=== PATIENT | female | born 1950 | race Hispanic/Latino ===

== ENCOUNTER 2016-12-22 01:07 | Observation (INO) | payer OTHER, MEDICAID ==
[~2016-12-22] VITALS: Ht 152.4 cm; Wt 49.0 kg
[~2016-12-22 01:07] MED LIST: CHERATUSSIN AC473 ML PO; CLONAZEPAM1 MG PO; LO-DOSE ASPIRIN81 M2 PO; SIMVASTATIN40 MG PO; TESSALON PERLE100 MG PO; ZITHROMAX Z-PA250 MG PO
[2016-12-22 01:56] LABS: HEMATOCRIT 37.7 % (36.0-46.0); MCH 29.6 PG (29.0-34.0); MCHC 32.4 G/DL (30.0-36.0); MCV 91.5 FL (83-99); MEAN PLAT.VOLUME 9.7 uM^3 (9.5-12.4); PLATELET COUNT 289 K/uL (156-360); RBC DIS.WIDTH-SD 43.8 % (39-53); RED BLOOD COUNT 4.12 M/uL (3.80-5.20); WHITE BLOOD COUNT 6.8 K/uL (4.1-10.2)
[2016-12-22 02:07] LABS: CHLORIDE 106 mEq/L (99-109); POTASSIUM 4.2 mEq/L (3.7-5.4); SODIUM 143 mEq/L (136-147)
[2016-12-22 02:09] LABS: GLUCOSE 107 mg/dL (70-99)
[2016-12-22 02:10] LABS: ANION GAP 10 MEQ/L (2-14)
[2016-12-22 02:13] LABS: GFR ESTIMATE (CALCULATED) > 59 mL/min/
[2016-12-22 02:14] LABS: UREA NITROGEN (BUN) 13 mg/dL (9-23)
[2016-12-22 02:17] LABS: TROP-I INTERPRETATION NEGATIVE; TROPONIN-I < 0.01 ng/mL (0.0-0.30)
[2016-12-22 04:45] VITALS: BP 141/67
[2016-12-22 07:35] VITALS: BP 139/64
[2016-12-22 09:21] LABS: TROP-I INTERPRETATION NEGATIVE; TROPONIN-I < 0.01 ng/mL (0.0-0.30)
[2016-12-22 12:00] VITALS: BP 135/65
[2016-12-22] MEDS ORDERED: SIMVASTATIN40 MG PO (13:24)
[2016-12-22 14:22] LABS: TROP-I INTERPRETATION NEGATIVE; TROPONIN-I < 0.01 ng/mL (0.0-0.30)
== END 2016-12-22 17:16 | disposition home or self-care (01) ==
LOC: EME 01:07 → EDOF 03:06 → 5WEST 03:06 → EDOF 03:06 → 5WEST 04:46
PROVIDERS: Internal Medicine
DX: R07.89 Other chest pain (principal); E78.5 Hyperlipidemia, unspecified; F41.9 Anxiety disorder, unspecified; E78.00 Pure hypercholesterolemia, unspecified
CPT/HCPCS: 71020; 80048; 80053; 81003; 84484; 85027; 93005; 99281; 99285; G0378; J1644

== ENCOUNTER 2017-10-11 12:02 | Emergency (ER) | payer OTHER ==
[~2017-10-11] VITALS: Ht 149.9 cm; Wt 47.7 kg
[2017-10-11 12:51] LABS: HEMATOCRIT 41.2 % (36.0-46.0); HEMOGLOBIN 13.6 G/DL (11.9-15.5); MCV 90.7 FL (83-99); PLATELET COUNT 264 K/uL (156-360); RBC DIS.WIDTH-CV 13.1 % (11.8-14.6); RBC DIS.WIDTH-SD 43.8 % (39-53); RED BLOOD COUNT 4.54 M/uL (3.80-5.20); WHITE BLOOD COUNT 5.3 K/uL (4.1-10.2)
[2017-10-11 13:10] LABS: ALBUMIN 4.7 g/dL (3.2-4.8)
[2017-10-11 13:11] LABS: CHLORIDE 105 mEq/L (99-109); POTASSIUM 4.2 mEq/L (3.7-5.4); SODIUM 141 mEq/L (136-147)
[2017-10-11 13:13] LABS: GLUCOSE 89 mg/dL (70-99); TOTAL PROTEIN 7.4 g/dL (6.4-8.3)
[2017-10-11 13:15] LABS: TOTAL BILIRUBIN 0.7 mg/dL (0.0-1.0)
[2017-10-11 13:16] LABS: ALKALINE PHOSPHATASE 69 IU/L (3-129)
[2017-10-11 13:17] LABS: CREATININE 0.8 mg/dL (0.6-1.3); GFR ESTIMATE (CALCULATED) > 59 mL/min/
[2017-10-11 13:18] LABS: AST (GOT) 25 IU/L (2-34); UREA NITROGEN (BUN) 14 mg/dL (9-23)
[2017-10-11 13:19] LABS: ALT (GPT) 14 IU/L (3-49)
[2017-10-11 16:12] LABS: APPEARANCE CLEAR ((CLEAR)); BILIRUBIN NEGATIVE; BLOOD SMALL; COLOR YELLOW ((YELLOW)); GLUCOSE (STRIP) NEGATIVE; KETONES 5; LEUKOCYTES TRACE; NITRITE NEGATIVE; PROTEIN (STRIP) NEGATIVE; UROBILINOGEN 0.2 MG/DL (0.2-1.0)
[2017-10-11 16:22] LABS: BACTERIA NONE SEEN /HPF; EPITHELIAL CELLS RARE /HPF; MUCUS 3+ /LPF; RED BLOOD CELLS 0-5 /HPF (0-5); UCUL ADDED? NO; WHITE BLOOD CELLS 0-5 /HPF (0-5)
[2017-10-11] MEDS ORDERED: MIRALAX17 GM PO (16:48)
[2017-10-11] MEDS ORDERED: MAGNESIUM CITR296 M1 PO (16:48)
[2017-10-11 17:32] VITALS: BP 147/77
== END 2017-10-11 17:33 | disposition home or self-care (01) ==
LOC: EME 12:02
DX: K59.00 Constipation, unspecified (principal); E78.5 Hyperlipidemia, unspecified; F41.9 Anxiety disorder, unspecified; F32.9 Major depressive disorder, single episode, unspecified; Z79.82 Long term (current) use of aspirin; Z86.718 Personal history of other venous thrombosis and embolism; Z98.61 Coronary angioplasty status
CPT/HCPCS: 80053; 81003; 85027; 99281; 99284

== ENCOUNTER 2017-11-24 10:54 | Emergency (ER) | payer OTHER ==
[~2017-11-24] VITALS: Ht 144.8 cm; Wt 49.0 kg
[~2017-11-24 10:54] MED LIST changes: +MAGNESIUM CITR296 M1 PO; +MIRALAX17 GM PO
[2017-11-24 11:29] LABS: APPEARANCE CLOUDY ((CLEAR)); BILIRUBIN NEGATIVE; BLOOD NEGATIVE; COLOR YELLOW ((YELLOW)); GLUCOSE (STRIP) NEGATIVE; KETONES NEGATIVE; LEUKOCYTES TRACE; NITRITE NEGATIVE; PROTEIN (STRIP) NEGATIVE; SPECIFIC GRAVITY 1.019 (1.000-1.030); UROBILINOGEN 0.2 MG/DL (0.2-1.0)
[2017-11-24 11:36] LABS: BACTERIA RARE /HPF; EPITHELIAL CELLS RARE /HPF; MUCUS 2+ /LPF; RED BLOOD CELLS 0-5 /HPF (0-5); UCUL ADDED? NO; WHITE BLOOD CELLS 0-5 /HPF (0-5)
[2017-11-24 11:40] LABS: HEMATOCRIT 41.1 % (36.0-46.0); HEMOGLOBIN 13.7 G/DL (11.9-15.5); MCH 30.6 PG (29.0-34.0); MCHC 33.3 G/DL (30.0-36.0); MCV 91.7 FL (83-99); PLATELET COUNT 261 K/uL (156-360); RBC DIS.WIDTH-SD 43.7 % (39-53); RED BLOOD COUNT 4.48 M/uL (3.80-5.20); WHITE BLOOD COUNT 7.1 K/uL (4.1-10.2)
[2017-11-24 11:49] LABS: ALBUMIN 4.7 g/dL (3.2-4.8); CHLORIDE 101 mEq/L (99-109); POTASSIUM 4.5 mEq/L (3.7-5.4); SODIUM 139 mEq/L (136-147)
[2017-11-24 11:52] LABS: GLUCOSE 99 mg/dL (70-99); TOTAL PROTEIN 7.4 g/dL (6.4-8.3)
[2017-11-24 11:53] LABS: TOTAL BILIRUBIN 0.3 mg/dL (0.0-1.0)
[2017-11-24 11:55] LABS: ALKALINE PHOSPHATASE 72 IU/L (3-129); CREATININE 0.8 mg/dL (0.6-1.3); GFR ESTIMATE (CALCULATED) > 59 mL/min/
[2017-11-24 11:56] LABS: UREA NITROGEN (BUN) 15 mg/dL (9-23)
[2017-11-24 11:57] LABS: AST (GOT) 30 IU/L (2-34)
[2017-11-24 11:58] LABS: ALT (GPT) 18 IU/L (3-49)
[2017-11-24] MEDS ORDERED: ZITHROMAX250 MG PO (13:44)
[2017-11-24 14:15] VITALS: BP 141/87
== END 2017-11-24 14:49 | disposition home or self-care (01) ==
LOC: EME 10:54
DX: J18.9 Pneumonia, unspecified organism (principal); E78.5 Hyperlipidemia, unspecified; F41.9 Anxiety disorder, unspecified; F32.9 Major depressive disorder, single episode, unspecified; Z86.718 Personal history of other venous thrombosis and embolism; Z79.82 Long term (current) use of aspirin
CPT/HCPCS: 71046; 80053; 81003; 85027; 99281; 99284

== ENCOUNTER 2017-11-26 10:49 | Observation (INO) | payer OTHER ==
[~2017-11-26] VITALS: Ht 157.5 cm; Wt 47.8 kg
[~2017-11-26 10:49] MED LIST changes: +ZITHROMAX250 MG PO
[2017-11-26 12:06] LABS: BASOPHIL (%) 0.2 % (0-1); EOSINOPHIL (%) 0.4 % (0-5); HEMATOCRIT 40.7 % (36.0-46.0); HEMOGLOBIN 13.6 G/DL (11.9-15.5); LYMPHOCYTE (%) 12.7 % (15-42); LYMPHOCYTE COUNT 0.6 K/uL (1.0-2.8); MCH 30.1 PG (29.0-34.0); MCHC 33.4 G/DL (30.0-36.0); MONOCYTE (%) 10.9 % (3-12); MONOCYTE COUNT 0.5 K/uL (0-0.8); NEUTROPHIL (%) 75.8 % (45-76); NEUTROPHIL COUNT 3.7 K/uL (1.8-6.4); PLATELET COUNT 199 K/uL (156-360); RBC DIS.WIDTH-CV 13.2 % (11.8-14.6); RBC DIS.WIDTH-SD 43.4 % (39-53); RED BLOOD COUNT 4.52 M/uL (3.80-5.20); WHITE BLOOD COUNT 4.9 K/uL (4.1-10.2)
[2017-11-26 12:18] LABS: CHLORIDE 103 mEq/L (99-109); POTASSIUM 4.2 mEq/L (3.7-5.4); SODIUM 140 mEq/L (136-147)
[2017-11-26 12:20] LABS: GLUCOSE 100 mg/dL (70-99)
[2017-11-26 12:23] LABS: GFR ESTIMATE (CALCULATED) 59 mL/min/
[2017-11-26 12:24] LABS: UREA NITROGEN (BUN) 20 mg/dL (9-23)
[2017-11-26 12:27] LABS: TROP-I INTERPRETATION NEGATIVE; TROPONIN-I < 0.01 ng/mL (0.0-0.30)
[2017-11-26] MEDS ORDERED: MIRALAX17 GM PO (13:51)
[2017-11-26] MEDS ORDERED: CYANOCOBALAMIN PO (13:52)
[2017-11-26] MEDS ORDERED: MULTIVITAMIN1 EAC2 PO (13:53)
[2017-11-26] MEDS ORDERED: ZANAFLEX4 MG PO (13:54)
[2017-11-26] MEDS ORDERED: LEXAPRO5 MG PO (13:54)
[2017-11-26 15:26] LABS: INTER. NORMALIZED RATIO 1.1
[2017-11-26 15:29] LABS: PTT 30.1 SEC (25-37)
[2017-11-26 15:30] VITALS: BP 142/60
[2017-11-26 19:00] VITALS: BP 116/60
[2017-11-26 19:27] LABS: TROP-I INTERPRETATION NEGATIVE; TROPONIN-I 0.01 ng/mL (0.0-0.30)
[2017-11-26 19:28] LABS: HEMATOCRIT 35.3 % (36.0-46.0); HEMOGLOBIN 11.6 G/DL (11.9-15.5); MCV 88.9 FL (83-99)
[2017-11-27] VITALS (7 sets, daily range): BP systolic 81–137; BP diastolic 45–71
[2017-11-27 01:02] LABS: APPEARANCE CLEAR ((CLEAR)); BILIRUBIN NEGATIVE; BLOOD NEGATIVE; COLOR YELLOW ((YELLOW)); GLUCOSE (STRIP) NEGATIVE; KETONES 20; LEUKOCYTES NEGATIVE; NITRITE NEGATIVE; PROTEIN (STRIP) NEGATIVE; UCUL ADDED? NO; UROBILINOGEN 0.2 MG/DL (0.2-1.0)
[2017-11-27 01:17] LABS: TROP-I INTERPRETATION NEGATIVE; TROPONIN-I < 0.01 ng/mL (0.0-0.30)
[2017-11-27 06:26] LABS: HEMATOCRIT 31.2 % (36.0-46.0); HEMOGLOBIN 10.1 G/DL (11.9-15.5); MCH 29.4 PG (29.0-34.0); MCHC 32.4 G/DL (30.0-36.0); MCV 90.7 FL (83-99); PLATELET COUNT 157 K/uL (156-360); RBC DIS.WIDTH-CV 13.3 % (11.8-14.6); RBC DIS.WIDTH-SD 44.1 % (39-53); WHITE BLOOD COUNT 2.8 K/uL (4.1-10.2)
[2017-11-27 06:32] LABS: RED BLOOD COUNT 3.44 M/uL (3.80-5.20)
[2017-11-27 07:01] LABS: CHLORIDE 111 MEQ/L (99-109); CREATININE 0.7 MG/DL (0.6-1.3); GFR ESTIMATE (CALCULATED) > 59 mL/min/; GLUCOSE 80 mg/dL (70-99); SODIUM 142 MEQ/L (136-147); UREA NITROGEN (BUN) 12 mg/dL (9-23)
[2017-11-27 07:02] LABS: POTASSIUM 3.3 MEQ/L (3.7-5.4)
[2017-11-27 11:58] LABS: HEMOGLOBIN 10.8 G/DL (11.9-15.5); MCV 89.7 FL (83-99)
[2017-11-27 13:01] LABS: ALBUMIN 3.2 G/DL (3.2-4.8); ALKALINE PHOSPHATASE 37 IU/L (3-129); ALT (GPT) 16 IU/L (3-49); AST (GOT) 29 IU/L (2-34); CREATINE KINASE 96 IU/L (1-294); DIRECT BILIRUBIN 0.1 mg/dL (0.0-0.3); MAGNESIUM 1.8 mg/dl (1.3-2.7); TOTAL BILIRUBIN 0.2 MG/DL (0.0-1.0); TOTAL PROTEIN 5.2 G/DL (6.4-8.3)
== END 2017-11-27 14:36 | disposition home or self-care (01) ==
LOC: EME 10:49 → EDOF 12:54 → ENRESERV 12:56 → EDOF 12:58 → ENRESERV 13:03 → 5WEST 13:53 → ENPENDDIS 11-27 → 5WEST 11-27 14:36
PROVIDERS: Emergency Medicine; Internal Medicine; Nurse Practitioner Adult Health; Physician Assistant Medical
DX: R55 Syncope and collapse (principal); R07.9 Chest pain, unspecified; R04.2 Hemoptysis; D64.9 Anemia, unspecified; Z87.01 Personal history of pneumonia (recurrent); Z82.49 Family history of ischemic heart disease and other diseases of the circulatory system; Z79.82 Long term (current) use of aspirin; F41.9 Anxiety disorder, unspecified; E78.5 Hyperlipidemia, unspecified
CPT/HCPCS: 70450; 71045; 71275; 80048; 80076; 81003; 82272; 82550; 83735; 84484; 85014; 85018; 85025; 85027; 85379; 85610; 85730; 93005; 99281; 99284; G0378; J7030

== ENCOUNTER 2018-02-16 23:07 | Emergency (ER) | payer OTHER ==
[~2018-02-16] VITALS: Ht 152.4 cm; Wt 50.0 kg
[~2018-02-16 23:07] MED LIST changes: +CYANOCOBALAMIN PO; +LEXAPRO5 MG PO; +MULTIVITAMIN1 EAC2 PO; +ZANAFLEX4 MG PO
[2018-02-16 23:50] LABS: BASOPHIL (%) 0.4 % (0-1); EOSINOPHIL (%) 1.7 % (0-5); EOSINOPHIL COUNT 0.1 K/uL (0-0.3); HEMATOCRIT 37.2 % (36.0-46.0); HEMOGLOBIN 12.7 G/DL (11.9-15.5); IMMATURE GRANULOCYTE (%) 0.1 % (0.0-0.7); LYMPHOCYTE (%) 46.7 % (15-42); LYMPHOCYTE COUNT 3.3 K/uL (1.0-2.8); MCH 31.1 PG (29.0-34.0); MCHC 34.1 G/DL (30.0-36.0); MONOCYTE COUNT 0.6 K/uL (0-0.8); NEUTROPHIL (%) 42.1 % (45-76); PLATELET COUNT 247 K/uL (156-360); RED BLOOD COUNT 4.09 M/uL (3.80-5.20); WHITE BLOOD COUNT 7.1 K/uL (4.1-10.2)
[2018-02-16 23:59] LABS: ALBUMIN 4.4 g/dL (3.2-4.8); CHLORIDE 105 mEq/L (99-109); POTASSIUM 3.9 mEq/L (3.7-5.4); SODIUM 144 mEq/L (136-147)
[2018-02-17] LABS: MAGNESIUM 2.4 mg/dL (1.3-2.7)
[2018-02-17 00:02] LABS: GLUCOSE 103 mg/dL (70-99)
[2018-02-17 00:04] LABS: TOTAL BILIRUBIN 0.3 mg/dL (0.0-1.0)
[2018-02-17 00:05] LABS: ALKALINE PHOSPHATASE 72 IU/L (3-129)
[2018-02-17 00:06] LABS: CREATININE 0.8 mg/dL (0.6-1.3); GFR ESTIMATE (CALCULATED) > 59 mL/min/
[2018-02-17 00:07] LABS: AST (GOT) 30 IU/L (2-34); UREA NITROGEN (BUN) 16 mg/dL (9-23)
[2018-02-17 00:09] LABS: ALT (GPT) 16 IU/L (3-49); CREATINE KINASE 107 IU/L (1-294)
[2018-02-17 00:14] LABS: TROP-I INTERPRETATION NEGATIVE; TROPONIN-I 0.01 ng/mL (0.0-0.30)
[2018-02-17 01:04] LABS: APPEARANCE CLEAR ((CLEAR)); BILIRUBIN NEGATIVE; BLOOD NEGATIVE; COLOR STRAW ((YELLOW)); GLUCOSE (STRIP) NEGATIVE; KETONES NEGATIVE; LEUKOCYTES MODERATE; NITRITE NEGATIVE; PROTEIN (STRIP) NEGATIVE; SPECIFIC GRAVITY 1.005 (1.000-1.030); UROBILINOGEN 0.2 MG/DL (0.2-1.0)
[2018-02-17 01:13] LABS: BACTERIA RARE /HPF; EPITHELIAL CELLS RARE /HPF; MUCUS TRACE /LPF; RED BLOOD CELLS 0-5 /HPF (0-5); UCUL ADDED? NO; WHITE BLOOD CELLS 0-5 /HPF (0-5)
[2018-02-17 03:05] VITALS: BP 148/80
== END 2018-02-17 03:07 | disposition home or self-care (01) ==
LOC: EME 23:07
PROVIDERS: Emergency Medicine
DX: R53.81 Other malaise (principal); R53.83 Other fatigue; R94.31 Abnormal electrocardiogram [ECG] [EKG]; E78.5 Hyperlipidemia, unspecified; F41.9 Anxiety disorder, unspecified; F32.9 Major depressive disorder, single episode, unspecified; Z79.82 Long term (current) use of aspirin; Z86.718 Personal history of other venous thrombosis and embolism; Z98.890 Other specified postprocedural states
CPT/HCPCS: 71045; 80053; 81003; 82550; 83735; 84484; 85025 91; 93005; 99281; 99284

== ENCOUNTER → 2018-03-24 | Outpatient (CLI) | payer OTHER ==
[~2018-03-24] VITALS: Ht 134.6 cm; Wt 45.8 kg
[~2018-03-24] MED LIST changes: +CELEXA10 MG PO; +OMEPRAZOLE40 M1 PO
== END | disposition home or self-care (01) ==
LOC: AMB 06:34
PROC: 0DB68ZX Excision of Stomach, Via Natural or Artificial Opening Endoscopic, Diagnostic (ICD-10-PCS; principal; 2018-03-24)
DX: K21.9 Gastro-esophageal reflux disease without esophagitis (principal); Z86.19 Personal history of other infectious and parasitic diseases; E78.5 Hyperlipidemia, unspecified; F41.8 Other specified anxiety disorders; Z79.82 Long term (current) use of aspirin
CPT/HCPCS: 88305; 88342 TC